=== PATIENT | female | born 1995 | race Caucasian/White ===

== ENCOUNTER 2022-06-12 12:00 | Emergency (ER) | payer BC, OTHER ==
[2022-06-12 12:13] VITALS: BP 127/83; PULSE 85; RESP 18; TEMP 99; BMI 26.6
== END 2022-06-12 13:02 | disposition home or self-care (01) ==
LOC: FER 12:00
DX: S89.91XA Unspecified injury of right lower leg, initial encounter (principal); S89.92XA Unspecified injury of left lower leg, initial encounter; W19.XXXA Unspecified fall, initial encounter
CPT/HCPCS: 99282-25

== ENCOUNTER 2022-11-14 15:06 | Emergency (ER) | payer OTHER, BC ==
[2022-11-14] MEDS ORDERED: ACETAMINOPHEN 325 MG TABLET (FP) PO ONE (16:04)
[2022-11-14 16:09] VITALS: BP 128/83; PULSE 75; RESP 20; TEMP 98.5; BMI 25.7
[2022-11-14] MEDS ORDERED: ACETAMINOPHEN 325 MG TABLET (FP) ONE (16:15)
== END 2022-11-14 16:23 | disposition home or self-care (01) ==
LOC: FER 15:06
DX: S16.1XXA Strain of muscle, fascia and tendon at neck level, initial encounter (principal); S66.912A Strain of unspecified muscle, fascia and tendon at wrist and hand level, left hand, initial encounter; V49.50XA Passenger injured in collision with unspecified motor vehicles in traffic accident, initial encounter
CPT/HCPCS: 99283-25

== ENCOUNTER 2023-02-28 23:07 | Emergency (ER) | payer BC, OTHER ==
[2023-02-28 23:13] VITALS: BP 126/86; PULSE 79; RESP 16; TEMP 98.8; BMI 25.0
== END 2023-02-28 23:41 | disposition home or self-care (01) ==
LOC: FER 23:07
DX: M25.561 Pain in right knee (principal)
CPT/HCPCS: 99282-25

== ENCOUNTER 2024-05-05 05:16 | Emergency (ER) | payer OTHER, BC ==
[2024-05-05] MEDS ORDERED: IBUPROFEN 600 MG TABLET (FP) PO ONE (05:52)
[2024-05-05] MEDS: IBUPROFEN 600 MG TABLET (FP) PO ONE (05:55)
[2024-05-05 06:11] VITALS: BP 134/76; PULSE 89; RESP 18; TEMP 99.1; BMI 25.0
== END 2024-05-05 06:55 | disposition home or self-care (01) ==
LOC: FER 05:16
DX: S56.911A Strain of unspecified muscles, fascia and tendons at forearm level, right arm, initial encounter (principal); W50.2XXA Accidental twist by another person, initial encounter; Y35.811A Legal intervention involving manhandling, law enforcement official injured, initial encounter
CPT/HCPCS: 73110-TC-RT-FY; 73130-TC-RT-FY; 99283-25